=== PATIENT | male | born 1950 | race Caucasian/White ===

== ENCOUNTER → 2017-02-23 | Outpatient (CLI) | payer BC ==
[~2017-02-23] MED LIST: ALEN70TA2 PO; ASP325T; ASP81CT PO; CALC-80 PO; CHOL200025 PO; FLAX100031 PO; MTP25TSR PO; OMG1KC; PNT40TEC PO; SMV10T PO; SRTR100T PO; [UNRECOGNIZED DRUG - OTHER]
--- NOTE | 2017-02-23 14:11 | Diagnostic Imaging Report ---
EXAMINATION: DEXA scan. INDICATION: Osteopenia. TECHNIQUE: Bone mineral density estimated based on dual energy radiography over the lumbar spine and femoral necks, was performed. FINDINGS: The lumbar spine T-score is -1.2. This is 8.7% increased density measurement compared to 02/23/2017. T score in the left femoral neck is -2 and on the right side is -1.8. This is 0.7% decreased density measurement compared to the previous exam. IMPRESSION: Osteopenia. Dictated by: Dictated on workstation # [id number]
== END ==
LOC: RAD 07:49
PROVIDERS: ATTEND Family Medicine
DX: M81.0 Age-related osteoporosis without current pathological fracture (principal)
CPT/HCPCS: 77080

== ENCOUNTER → 2017-04-06 | Outpatient (CLI) | payer BC ==
--- NOTE | 2017-04-06 13:03 | Diagnostic Imaging Report ---
PROCEDURE: Lung cancer screening CT chest without contrast. TECHNIQUE: Multiple contiguous axial images were obtained through the chest without the use of intravenous contrast. This is performed with a low-dose protocol. INDICATION: Currently asymptomatic patient with 30 pack years history of smoking COMPARISON: 08/12/2014. FINDINGS: There is a 6-mm calcified granuloma in the medial aspect of the left lower lobe posterior to the descending aorta with other smaller adjacent nodules seen. It is stable from 2015 exam. There is no new pulmonary nodule, mass, or significant consolidation. There is no mediastinal mass. The hilar vessels are not opacified with no obvious hilar mass seen. No axillary lymphadenopathy is noted. The heart size is normal. The thoracic aorta is normal. No pleural or pericardial effusion. The liver demonstrates hypodense lesions up to 1.8 cm in size likely related to hepatic cysts. These appeared to be present on 2015 exam but slightly more prominent currently. The osseous structures demonstrate mild degenerative changes. There is an 8-mm nonspecific sclerotic focus seen in the posterior aspect of the spinous process of T7. This is likely related to bony island and appeared to be present on the previous exam submitted. IMPRESSION: Calcified granulomas in the medial posterior aspect of the left lower lobe. No suspicious nodule or lung mass identified. Lung Rads Category 2. Benign findings. Recommendations: Annual screening low-dose CT scan. Dictated by: Dictated on workstation # [id number]
== END ==
LOC: RAD 10:07
PROVIDERS: ATTEND Family Medicine
DX: Z12.2 Encounter for screening for malignant neoplasm of respiratory organs (principal); J98.4 Other disorders of lung; Z87.891 Personal history of nicotine dependence

== ENCOUNTER → 2018-04-05 | Outpatient (CLI) | payer BC ==
--- NOTE | 2018-04-05 15:11 | Diagnostic Imaging Report ---
INDICATION: Osteopenia; screening for osteoporosis. COMPARISON: 02/23/2017 FINDINGS: AP Spine L1-L4: [BMD (g/cm2): 1.0] [T-Score: -2.0] [Z-Score: -0.6] [BMD Previous: .088] [BMD % Change: -8.8] LT Hip Neck: [BMD (g/cm2): .699] [T-Score: -2.9] [Z-Score: -1.0] LT Hip Total: [BMD (g/cm2):.805] [T-Score:-2.1] [Z-Score: .8] [BMD Previous: ] [BMD % Change: -1.4] RT Hip Neck: [BMD (g/cm2):.795] [T-Score:-2.1] [Z-Score:-0.3] RT Hip Total: [BMD (g/cm2):.829] [T-score:-1.9] [Z-Score:-0.6] [BMD Previous: ] [BMD % Change:-1.4] *Indicates significant change from prior examination based on 95% confidence level. World Health Organization criteria for BMD interpretation classify patients as Normal (T-score at or above -1.0), Osteopenic (T-score between -1.0 and -2.5) or Osteoporotic (T-score at or below -2.5). LIMITATIONS AND MODIFICATION: None. FRACTURE RISK (FRAX SCORE): The ten year probability of (%): Major Osteoporotic Fracture: [6.6] Hip Fracture: [1.9] IMPRESSION: 1. Osteopenia (Low bone mass). 2. No significant change in bone mineral density since prior examination. 3. See below National Osteoporosis Foundation guidelines on when to potentially initiate pharmacologic therapy. Based on the National Osteoporosis Foundation Guidelines, pharmacologic treatment should be initiated in any of the following, unless clinical conditions suggest otherwise: * Any patient with prior fragility fracture of the hip or vertebrae. A spine fracture indicates 5X risk for subsequent spine fracture and 2X risk for subsequent hip fracture. * Osteoporosis (T-score <-2.5). * Postmenopausal women and men age 50 and older with low bone mass/osteopenia (T-score between -1.0 and -2.5) by DXA and 10-year major osteoporotic fracture greater than 20% or a 10-year probability of hip fracture greater than 3%. These fracture risks are supplied above in the FRAX score, if applicable. * Clinician judgement and/or patient preferences may indicate treatment for people with 10-year fracture probabilities above or below these levels. Dictated by: Dictated on workstation # [id number]
== END ==
LOC: RAD 08:10
PROVIDERS: ATTEND Nurse Practitioner Family
DX: Z13.820 Encounter for screening for osteoporosis (principal); M85.89 Other specified disorders of bone density and structure, multiple sites; M81.0 Age-related osteoporosis without current pathological fracture
CPT/HCPCS: 77080

== ENCOUNTER → 2018-04-09 | Outpatient (CLI) | payer BC ==
--- NOTE | 2018-04-09 09:06 | Diagnostic Imaging Report ---
Indication: 13-xdgi-[id number] smoker for low-dose CT screening. Exam compared with prior 04/06/2017. Findings: Long-term stability of calcified benign nodule consistent with granuloma in the left lower lobe unchanged. No new, noncalcified or suspicious chest mass. There is no pneumonia, effusion or pneumothorax. No appreciable thoracic adenopathy or aneurysm. There is mild left-sided coronary arterial atherosclerotic calcifications. A low-density nodule left hepatic lobe stable believed cystic and unchanged. Right lobe nodules present on prior below the [id number] of today's exam. Thoracic spondylosis chronic. No acute or suspect bony abnormality. Impression: Stable benign findings as described. LungRads category 2. Continued low-dose annual CT screening followup recommended in 12 months' time. Dictated by: Dictated on workstation # [id number]
== END ==
LOC: RAD 08:12
PROVIDERS: ATTEND Nurse Practitioner Family
DX: Z12.2 Encounter for screening for malignant neoplasm of respiratory organs (principal); Z87.891 Personal history of nicotine dependence

== ENCOUNTER → 2019-03-13 | Outpatient (CLI) | payer BC, MEDICARE ==
--- NOTE | 2019-03-13 20:58 | Diagnostic Imaging Report ---
EXAMINATION: Magnetic resonance imaging of the right shoulder without contrast. DATE: March 13, 2019. COMPARISON: None. HISTORY: 69-year-old male, right shoulder pain. TECHNIQUE: Magnetic Resonance Imaging sequences were performed of the shoulder without contrast. FINDINGS: ROTATOR CUFF, LIGAMENTS, TENDONS, AND MUSCLES: The supraspinatus, infraspinatus, teres minor, and subscapularis tendons and muscles are intact. There is normal rotator cuff muscle bulk and signal. LONG HEAD OF BICEPS: The biceps labral attachment and long head of the biceps tendon is intact. The long head of the biceps tendon is normally positioned within the bicipital groove. GLENOHUMERAL JOINT: The humeral head is well positioned relative to the glenoid. The labrum is grossly intact. There is no identified paralabral cyst. The articular cartilage is grossly intact. There is no joint effusion. ACROMIOCLAVICULAR JOINT: The acromioclavicular joint is normally aligned. The coracoclavicular and coracoacromial ligaments are intact. There are advanced acromioclavicular degenerative changes with osteophytes extending approximately 3 mm below the joint margin. BONE: There is no os acromiale. There is prominent degenerative related marrow edema adjacent to the acromioclavicular joint. There is no acute fracture, bone contusion or evidence of osteonecrosis. BURSAE AND SOFT TISSUES: There is soft tissue edema adjacent to the acromioclavicular joint. Additional bursal and soft tissue assessment is unremarkable. IMPRESSION: 1. Intact rotator cuff. 2. Severe acromioclavicular degenerative changes of 3 mm undersurface osteophytes. Extensive degenerative related marrow edema adjacent to the acromioclavicular joint. 3. Grossly intact labrum. Additional glenohumeral joint assessment is unremarkable. 4. No acute fracture, bone contusion or evidence of osteonecrosis. Dictated by: Dictated on workstation # [id number]
== END ==
LOC: RAD 12:26
PROVIDERS: ATTEND Family Medicine
DX: M19.011 Primary osteoarthritis, right shoulder (principal); M25.711 Osteophyte, right shoulder
CPT/HCPCS: 73221

== ENCOUNTER 2021-03-03 05:28 | Outpatient (RCR) | payer BC, MEDICARE ==
[~2021-03-03] VITALS: Ht 160 cm; Wt 50.8 kg
[~2021-03-03 05:28] MED LIST changes: +LOSA50TA63 PO
== END 2021-03-03 09:23 | disposition home or self-care (01) ==
LOC: PREOP 05:28
PROVIDERS: ATTEND Internal Medicine
DX: Z01.812 Encounter for preprocedural laboratory examination (principal); R13.10 Dysphagia, unspecified; Z80.0 Family history of malignant neoplasm of digestive organs; Z20.822 Contact with and (suspected) exposure to COVID-19
CPT/HCPCS: 87635

== ENCOUNTER 2021-03-05 09:58 | Day surgery (SDC) | payer BC, MEDICARE ==
--- NOTE | 2021-03-03 06:20 | HISTORY AND PHYSICAL ---
DATE OF SERVICE: [facility] HISTORY OF PRESENT ILLNESS: The patient is a 70-year-old male referred by Dr. Cardoso for surveillance EGD and colonoscopy. I last performed panendoscopy on 5 years ago that did not reveal significant abnormality. He does have a brother who was diagnosed with gastric cancer in his 40s. They both underwent genetic testing and showed similar pattern increasing the risk for colon and gastric cancer as well as prostate. The patient has a personal history of prostate and reportedly bladder cancer that did not require cystectomy. He has had radiation therapy for prostate cancer. He reports no changes in health while his weight is down a little over 10 pounds. He reports that he has been through diet and exercise. He has had some intermittent epigastric discomfort, denies dysphagia. He has noted no melena or bright red blood per rectum. PAST MEDICAL HISTORY: Other than above, past medical history is significant for hypertension, osteoporosis and depression. MEDICATIONS: Include Toprol-XL 25 mg daily, Zoloft 100 mg daily, alendronate 70 mg weekly, simvastatin 20 mg daily, hydrochlorothiazide 25 mg daily. FAMILY HISTORY: Other than his brother, he had one uncle, who also of stomach cancer. Father at age of 67. He is unsure of the cause. Mother reportedly of natural cause at the age of 86. SOCIAL HISTORY: He is retired, several years ago with no past smoking history and no significant alcohol intake. REVIEW OF SYSTEMS: CONSTITUTIONAL: He denies any recent change in weight. His weight is down 12.8 pounds from his last office visit five years ago. Denies night sweats, chills, fever and is vaccinated fully for COVID. GASTROINTESTINAL: As noted in the HPI. PULMONARY: Denies cough, wheezing or shortness of breath. CARDIOVASCULAR: Denies chest pain, orthopnea, PND or pedal edema. PHYSICAL EXAMINATION: GENERAL: Reveals pleasant white male, appears to be in no acute distress. HEENT: Unremarkable. CHEST: Clear. CARDIOVASCULAR: Reveals regular rate and rhythm without significant murmur, S3 or S4. NECK: Revealed no JVD, adenopathy or bruits. ABDOMEN: Soft, supple without mass, organomegaly or tenderness. VITAL SIGNS: Blood pressure was 142/80, heart rate of 70 and regular. EXTREMITIES: Reveal no cyanosis, clubbing or edema. ASSESSMENT: The patient is being set up for surveillance panendoscopy due to strong family history for colon cancer and reported genetic testing that increases his risk for this as well as colon cancer. Prep instructions with the Suprep kit were given and questions were answered. Job ID: [id number] DocumentID: [id number] Dictated Date: 03/01/2021 10:56:28 Domain Architect Date: 03/01/2021 11:11:17 Dictated By: LUISA KELLY MD MTDD
[2021-03-05] VITALS (9 sets, daily range): BP systolic 117–144; BP diastolic 57–79
[~2021-03-05] VITALS: Ht 160 cm; Wt 50.8 kg
[2021-03-05] MEDS ORDERED: LACTATED RINGERS 1,000 ML IV STA (10:10)
[2021-03-05] MEDS ORDERED: LACTATED RINGERS 1,000 ML IV ONE (10:13)
[2021-03-05] MEDS ORDERED: HURRICAINE EXT TUBE (BENZOCAINE) XX PRN (10:15)
[2021-03-05] MEDS ORDERED: LIDOCAINE JELLY 2% 6 ML SYRINGE MM PRN (10:15)
--- NOTE | 2021-03-05 11:12 | Pre-Op Note & Conscious Sedat ---
Pre-Operative Progress Note H&P Reviewed The H&P was reviewed, patient examined and no changes noted. Date H&P Reviewed: Mar 05, 2021 Time H&P Reviewed: 10:40 Conscious Sedation Pre-Proced ASA Score 2 For ASA 3 and 4: Consider anesthesia and medical clearance. Also, for patients with a history of failed moderate sedation consider anesthesia. Airway Lungs Heart ASA score ASA 1: a normal healthy patient ASA 2: a patient with a mild systemic disease (mid diabetes, controlled hypertension, obesity ASA 3: a patient with a severe systemic disease that limits activity (angina, COPD, prior Myocardial infarction) ASA 4: a patient with an incapacitating disease that is a constant threat to life (CHF, renal failure) ASA 5: a moribund patient not expected to survive 24 hrs. (ruptured aneurysm) ASA 6: a declared brain- patient whose organs are being harvested. For emergent operations, add the letter E after the classification Mallampati Classification Grade 2 Sedation Plan Analgesia, Amnesia, Plan communicated to team members, Discussed options with patient/fam, Discussed risks with patient/fam The patient is an appropriate candidate to undergo the planned procedure, sedation, and anesthesia. The patient immediately re-assessed prior to indication. LUISA KELLY MD Mar 05, 2021 11:12
[2021-03-05] MEDS ORDERED: PROPOFOL INJECTION 50 ML IV ONE (11:13)
--- NOTE | 2021-03-05 13:35 | Anesthesia-General Post-Op ---
MAC Patient Condition Mental Status/LOC: Same as Preop Cardiovascular: Satisfactory Nausea/Vomiting: Absent Respiratory: Satisfactory Pain: Controlled Complications: Absent Post Op Complications Complications None Follow Up Care/Instructions Patient Instructions None needed. Anesthesiology Discharge Order Discharge Order Patient is doing well, no complaints, stable vital signs, no apparent adverse anesthesia problems. No complications reported per nursing. ALIREZA JO CRNA Mar 05, 2021 13:35
--- NOTE | 2021-03-05 19:21 | OPERATIVE REPORT ---
DATE OF SERVICE: PANENDOSCOPY SUMMARY INDICATION FOR PROCEDURE: The patient is a 71-year-old white male referred by Dr. Cardoso for panendoscopy. There is a strong family history for gastric cancer. He reports some epigastric pain and undergoing colonoscopy due to history of polyps. DESCRIPTION OF PROCEDURE: The patient was placed in the left lateral decubitus position. The endoscope was inserted in the oral cavity and under direct visualization, the esophagus was intubated. The scope was passed down the esophagus through the stomach and second portion of the duodenum. Careful inspection was made as the endoscope was withdrawn. FINDINGS: The posterior pharynx, epiglottis, arytenoid aperture, true and false vocal folds were unremarkable on visual inspection. Proximal, mid and distal esophagus were unremarkable. The Z line was distinct. There was no evidence for hiatal hernia. No overt evidence for erosive esophagitis and no Youssef's change. The cardia and fundus of the stomach were unremarkable. There was some mild antral erythema with no underlying evidence for malignancy. A biopsy was obtained and submitted for histopathology and Helicobacter evaluation. The pylorus, pyloric channel, duodenal bulb and second portion of the duodenum were unremarkable. ASSESSMENT: Mild antral erythema noted with an otherwise normal EGD with no evidence for underlying gastric cancer. Biopsy from the antrum is pending for Helicobacter and histopathology. We then proceeded with colonoscopy. COLONOSCOPY: Prior to undergoing colonoscopy, a digital rectal evaluation was performed. Anal sphincter tone was normal and perianal reflexes intact. There was no palpable prostate tissue noted. No other abnormalities were noted on digital inspection of the anal canal and distal rectal vault. Present in the distal rectum were few telangiectasias compatible with some post-radiation change, but no ulceration and no evidence for polyps. The sigmoid colon, descending colon, splenic flexure, transverse colon, hepatic flexure, ascending colon and cecum were unremarkable with no evidence for neoplasia. ASSESSMENT: Findings are compatible with radiation proctitis change without ulceration. No evidence for neoplasia or diverticular disease. Otherwise, normal colonoscopy to the cecum. Considering family history, I would advocate repeating panendoscopy in 5 years. I thank you for the referral of this pleasant gentleman, reassured by today's findings. Job ID: [id number] DocumentID: [id number] Dictated Date: 03/05/2021 13:21:44 [employer]order [employer] Date: 03/05/2021 19:19:27 Dictated By: LUISA KELLY MD
== END 2021-03-05 13:10 | disposition home or self-care (01) ==
LOC: ENDO 09:58
PROVIDERS: ATTEND Internal Medicine
DX: Z12.11 Encounter for screening for malignant neoplasm of colon (principal); R10.13 Epigastric pain; K31.89 Other diseases of stomach and duodenum; I10 Essential (primary) hypertension; E78.5 Hyperlipidemia, unspecified; F32.A Depression, unspecified; Z85.46 Personal history of malignant neoplasm of prostate; Z79.899 Other long term (current) drug therapy; Z85.51 Personal history of malignant neoplasm of bladder; Z80.0 Family history of malignant neoplasm of digestive organs
CPT/HCPCS: 43239; G0105

== ENCOUNTER 2021-04-16 13:28 | Outpatient (CLI) | payer BC, MEDICARE ==
[2021-04-16 13:32] VITALS: BP 113/53
[2021-04-16] MEDS ORDERED: DENOSUMAB 60 MG/1 ML (PROLIA) SQ ONE (13:45)
== END 2021-04-16 14:30 | disposition home or self-care (01) ==
LOC: SDC 13:28
PROVIDERS: ATTEND Nurse Practitioner Family
DX: M81.0 Age-related osteoporosis without current pathological fracture (principal)
CPT/HCPCS: 96372

== ENCOUNTER → 2021-10-19 | Outpatient (CLI) | payer BC, MEDICARE ==
[~2021-10-19] MED LIST changes: +DENOSUMAB 60 MG/1 ML (PROLIA) SQ ONE
[2021-10-19 15:30] VITALS: BP 112/56
== END ==
LOC: SDC 15:17
PROVIDERS: ATTEND Nurse Practitioner Family
DX: M81.0 Age-related osteoporosis without current pathological fracture (principal)
CPT/HCPCS: 96372

== ENCOUNTER → 2022-02-11 | Outpatient (CLI) | payer BC, MEDICARE ==
[~2022-02-11] MED LIST changes: -ALEN70TA2 PO; +ALEN70TA85 PO; -DENOSUMAB 60 MG/1 ML (PROLIA) SQ ONE
== END ==
LOC: CARD 14:00
PROVIDERS: ATTEND Family Medicine
DX: R00.1 Bradycardia, unspecified (principal)
CPT/HCPCS: 93246

== ENCOUNTER → 2022-04-12 | Outpatient (CLI) | payer BC, MEDICARE ==
[~2022-04-12] VITALS: Ht 160 cm; Wt 50.8 kg
[~2022-04-12] MED LIST changes: +DENOSUMAB 60 MG/1 ML (PROLIA) SQ ONE
[2022-04-12 13:05] VITALS: BP 137/75
== END ==
LOC: SDC 12:41
PROVIDERS: ATTEND Nurse Practitioner Family
DX: M81.0 Age-related osteoporosis without current pathological fracture (principal)
CPT/HCPCS: 96372

== ENCOUNTER 2022-08-01 22:38 | Inpatient (IN) | payer BC, MEDICARE ==
[~2022-08-01] VITALS: Ht 160.2 cm; Wt 52.1 kg
[~2022-08-01 22:38] MED LIST changes: -DENOSUMAB 60 MG/1 ML (PROLIA) SQ ONE
[2022-08-01] MEDS ORDERED: KETOROLAC 30 MG/ML VIAL IVP STA (23:19)
[2022-08-01] MEDS ORDERED: LACTATED RINGERS 1,000 ML IV STA (23:19)
[2022-08-01 23:24] LABS: BASOPHILS % (AUTO) 0 % (0-10); EOSINOPHILS % (AUTO) 0 % (0-10); HEMATOCRIT 37 % (40-54); HEMOGLOBIN 13.7 g/dL (13.3-17.7); LYMPHOCYTES % (AUTO) 8 % (12-44); MEAN CORPUSCULAR HEMOGLOBIN 34 pg (25-34); MEAN CORPUSCULAR HGB CONC 37 g/dL (32-36); MEAN CORPUSCULAR VOLUME 91 fL (80-99); MEAN PLATELET VOLUME 10.3 fL (9.0-12.2); MONOCYTES # (AUTO) 0.9 10^3/uL (0.0-1.0); MONOCYTES % (AUTO) 7 % (0-12); NEUTROPHILS # (AUTO) 10.9 10^3/uL (1.8-7.8); NEUTROPHILS % (AUTO) 85 % (42-75); PLATELET COUNT 172 10^3/uL (130-400); WHITE BLOOD COUNT 12.8 10^3/uL (4.3-11.0)
[2022-08-01 23:27] LABS: POTASSIUM 4.4 MMOL/L (3.6-5.0)
[2022-08-01 23:28] LABS: CALCIUM 8.8 MG/DL (8.5-10.1)
[2022-08-01 23:28] LABS: BILIRUBIN,URINE NEGATIVE (NEGATIVE); CLARITY,URINE CLEAR; COLOR,URINE YELLOW; GLUCOSE, URINE (UA) NEGATIVE (NEGATIVE); KETONES,URINE NEGATIVE (NEGATIVE); LEUKOCYTE ESTERASE ,URINE NEGATIVE (NEGATIVE); NITRITE,URINE NEGATIVE (NEGATIVE); PROTEIN,URINE NEGATIVE (NEGATIVE)
[2022-08-01 23:29] LABS: TOTAL PROTEIN 6.8 GM/DL (6.4-8.2)
[2022-08-01] MEDS ORDERED: ONDANSETRON 4 MG/2 ML (SDV) Z0FRAN IVP ONE (23:30)
[2022-08-01 23:31] LABS: BILIRUBIN,TOTAL 0.8 MG/DL (0.1-1.0)
[2022-08-01 23:33] LABS: CREATININE SERUM 0.91 MG/DL (0.60-1.30)
[2022-08-01 23:36] LABS: MAGNESIUM 2.1 MG/DL (1.6-2.4)
[2022-08-01 23:40] LABS: BACTERIA,URINE NEGATIVE /HPF
[2022-08-02] VITALS (13 sets, daily range): BP systolic 104–165; BP diastolic 55–83
[2022-08-02] MEDS ORDERED: IOHEXOL 350 MG/ML 100 ML (OMNIPAQUE 350) VIAL IV ONE
[2022-08-02] MEDS ORDERED: CATHETER FLUSH 10 ML SYR IV PRN
[2022-08-02] MEDS ORDERED: NS 100 ML (IVPB) BAG IV ONE
[2022-08-02 00:07] LABS: ERYTHROCYTE SEDIMENTATION RATE 13 MM/HR (0-30); LYMPHOCYTES % (MANUAL) 5 %; MONOCYTES % (MANUAL) 9 %; NEUTROPHILS % (MANUAL) 86 %; RBC MORPH NORMAL
[2022-08-02] MEDS ORDERED: CEFEPIME INJECTION 1,000 MG in NS (IVPB) 50 ML IV ONE (00:30)
--- NOTE | 2022-08-02 01:30 | ED Abdominal Pain ---
General Chief Complaint: Abdominal/GI Problems Stated Complaint: APPENDICITIS Nursing Triage Note: PT AMB TO RM 8 WITH CC OF R LOWER ABD PAIN AND N/V X 2 DAYS. PT STATES PAIN INCREASED THIS PM CAUSING HIM TO BE CONCERNED FOR A APPENDICITIS. PT STATES HE HAS NOT EATIN SINCE MONDAY AM. Source of Information: Patient History of Present Illness Date Seen by Provider: Aug 01, 2022 Time Seen by Provider: 22:15 Initial Comments PT ARRIVES VIA POV FROM HOME PT STATES HE BEGAN HAVING ABDOMINAL PAIN ON MONDAY NIGHT 07/30/22 STATES PAIN STARTED IN PERIUMBILICAL AREA, AND THEN IT MOVED TO HIS RIGHT LOWER ABDOMEN PAIN IS CONSTANT, AND IS MUCH WORSE WITH ANY MOVEMENT OR WALKING. PAIN IS A LITTLE LESS IF HE LAYS STILL HE HAD FEVER OF 101 ON MONDAY HE HAS HAD NAUSEA AND VOMITED X 1 ON MONDAY MORNING. HE IS STILL URINATING NORMALLY. HE HAS SLIGHT PAIN IN HIS ABDOMEN ON URINATING. HE HAS NOT HAD BM SINCE MONDAY HE DID NOT EAT ANY FOOD ON MONDAY. TODAY HE ATE A LITTLE PASTA WITH [employer] ABOUT 3 HOURS AGO. HE HAS BEEN DRINKING FLUIDS HE HAS HAD PROSTATE CANCER AND HAD HIS PROSTATE REMOVED IN 2009 IN [place]. HE RECEIVED RADIATION WELL. NO CHEMOTHERAPY HE HAS NOT HAD ANY OTHER SURGERIES HE HAS HISTORY OF HTN AND HYPERLIPIDEMIA. PCP: DR. COWART. Allergies and Home Medications Allergies Coded Allergies: Penicillins (Verified Allergy, Unknown, 10/30/07) Patient Home Medication List Home Medication List Reviewed: Yes Aspirin (Aspirin 81 Mg Chew Tab) 81 Mg Chew, 81 MG PO DAILY, (Reported) Entered as Reported by: LI ROBLEDO on 04/05/111509 Last Action: Reviewed Calcium Carbonate/Vitamin D3 (Calcium 600 + D Caplet) 1 Each Tablet, 2 EACH PO DAILY, (Reported) Entered as Reported by: LI ROBLEDO on 04/05/111511 Last Action: Reviewed Cholecalciferol (Vitamin D3) (Vitamin D3) 2,000 Unit Tablet, 2,000 UNIT PO DAILY, (Reported) Entered as Reported by: LI ROBLEDO on 04/05/111511 Last Action: Reviewed Losartan Potassium (Losartan Potassium) 50 Mg Tablet, 50 MG PO BID, (Reported) Entered as Reported by: ANAHI LEY on 03/02/21 3430 Last Action: Reviewed Sertraline Hcl (Zoloft) 100 Mg Tablet, 50 MG PO DAILY, (Reported) Entered as Reported by: RUDY MANN on 10/30/07 1134 Last Action: Reviewed Simvastatin (Zocor) 10 Mg Tab, 10 MG PO EVERY OTHER DAY, (Reported) Entered as Reported by: LI ROBLEDO on 04/05/11 1510 Last Action: Reviewed Discontinued Medications Alendronate Sodium (Fosamax) 70 Mg Tablet, 70 MG PO WEEK, (Reported) Discontinued Reason: Duplicate Order Entered as Reported by: JOSE CARLOS PATTON on 02/17/16 1240 Last Action: Discontinued Metoprolol Succinate (Toprol Xl 25MG) 25 Mg Tab.sr.24h, 12.5 MG PO DAILY, (Reported) Discontinued Reason: No Longer Taking Entered as Reported by: RUDY MANN on 10/30/07 113 Last Action: Discontinued Review of Systems Review of Systems Constitutional: see HPI, fever, malaise EENTM: No Symptoms Reported Respiratory: No Symptoms Reported Cardiovascular: No Symptoms Reported Gastrointestinal: See HPI, Abdominal Pain, Nausea, Poor Appetite, Vomiting Genitourinary: See HPI Musculoskeletal: no symptoms reported Skin: no symptoms reported Psychiatric/Neurological: No Symptoms Reported Endocrine: No Symptoms Reported Hematologic/Lymphatic: No Symptoms Reported Past Iydrehe-Lxdcdn-Nqkbge Hx Patient Social History Tobacco Use?: No Substance use?: No Alcohol Use?: No Pt feels they are or have been: No Immunizations Up To Date Tetanus Booster (TDap): Unknown PED Vaccines UTD: No Influenza Vaccine Up-to-Date: Yes; Up-to-Date First/Initial COVID19 Vaccinat: JUN 2020 Second COVID19 Vaccination King: JULY 2020 Third COVID19 Vaccination Date: JUN 2020 Seasonal Allergies Seasonal Allergies: No Past Medical History Surgery/Hospitalization HX: HTN Surgeries: Yes Cardiac, Eye Surgery, Prostatectomy Respiratory: No Cardiac: Yes High Cholesterol, Hypertension Neurological: No Reproductive Disorders: No Sexually Transmitted Disease: No Genitourinary: Yes (PROSTATE CANCER 2009) Prostate Problems Gastrointestinal: No Musculoskeletal: No Endocrine: No Cancer: Yes Prostate Psychosocial: No Integumentary: No Blood Disorders: No Family Medical History FH: gastric cancer PAST SURGICAL HISTORY: -PROSTATECTOMY 2010 IN [place] FOR CANCER -10/30/2007--CARDIAC CATH BY DR. ROSA: MILD TO MODERATE NON-OCCLUSIVE DISEASE, NO INTERVENTION. -MULTIPLE COLONOSCOPIES -03/05/2021--COLONOSCOPY BY DR. 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 No evidence for neoplasia or diverticular disease. Otherwise, normal colonoscopy to the cecum. Considering family history, I would advocate repeating panendoscopy in 5 years. Physical Exam Vital Signs Vital Signs - First Documented 08/01/22 22:51 Temp 36.8 Pulse 67 Resp 16 B/P (MAP) 132/70 (90) Pulse Ox 98 O2 Delivery Room Air Capillary Refill : Less Than 3 Seconds Height/Weight/BMI Height: 5'3.00" Weight: 122lbs. 0.0oz. 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, no motor/sensory deficits, alert, normal mood/affect, oriented x 3 Skin: normal color, warm/dry; No rash Progress/Results/Core Measures Results/Orders Lab Results Laboratory Tests Test 08/01/22 23:03 08/01/22 23:13 Range/Units White Blood Count 12.8 H 4.3-11.0 10^3/uL Red Blood Count 4.09 L 4.30-5.52 10^6/uL Hemoglobin 13.7 13.3-17.7 g/dL Hematocrit 37 L 40-54 % Mean Corpuscular Volume 91 80-99 fL Mean Corpuscular Hemoglobin 34 25-34 pg Mean Corpuscular Hemoglobin Concent 37 H 32-36 g/dL Red Cell Distribution Width 11.8 10.0-14.5 % Platelet Count 172 130-400 10^3/uL Mean Platelet Volume 10.3 9.0-12.2 fL Immature Granulocyte % (Auto) 0 % Neutrophils (%) (Auto) 85 H 42-75 % Lymphocytes (%) (Auto) 8 L 12-44 % Monocytes (%) (Auto) 7 0-12 % Eosinophils (%) (Auto) 0 0-10 % Basophils (%) (Auto) 0 0-10 % Neutrophils # (Auto) 10.9 H 1.8-7.8 10^3/uL Lymphocytes # (Auto) 1.0 1.0-4.0 10^3/uL Monocytes # (Auto) 0.9 0.0-1.0 10^3/uL Eosinophils # (Auto) 0.0 0.0-0.3 10^3/uL Basophils # (Auto) 0.0 0.0-0.1 10^3/uL Immature Granulocyte # (Auto) 0.1 0.0-0.1 10^3/uL Neutrophils % (Manual) 86 % Lymphocytes % (Manual) 5 % Monocytes % (Manual) 9 % Blood Morphology Comment NORMAL Erythrocyte Sedimentation Rate 13 0-30 MM/HR Sodium Level 126 L 135-145 MMOL/L Potassium Level 4.4 3.6-5.0 MMOL/L Chloride Level 93 L 98-107 MMOL/L Carbon Dioxide Level 23 21-32 MMOL/L Anion Gap 10 5-14 MMOL/L Blood Urea Nitrogen 16 7-18 MG/DL Creatinine 0.91 0.60-1.30 MG/DL Estimat Glomerular Filtration Rate 88 BUN/Creatinine Ratio 18 Glucose Level 139 H 70-105 MG/DL Calcium Level 8.8 8.5-10.1 MG/DL Corrected Calcium 8.8 8.5-10.1 MG/DL Magnesium Level 2.1 1.6-2.4 MG/DL Total Bilirubin 0.8 0.1-1.0 MG/DL Aspartate Amino Transf (AST/SGOT) 28 5-34 U/L Alanine Aminotransferase (ALT/SGPT) 17 0-55 U/L Alkaline Phosphatase 38 L 40-136 U/L C-Reactive Protein High Sensitivity 10.52 H 0.00-0.50 MG/DL Total Protein 6.8 6.4-8.2 GM/DL Albumin 4.0 3.2-4.5 GM/DL Amylase Level 63 25-125 U/L Lipase 65 8-78 U/L Urine Color YELLOW Urine Clarity CLEAR Urine pH 7.0 5-9 Urine Specific [place] <=1.005 1.016-1.022 Urine Protein NEGATIVE NEGATIVE Urine Glucose (UA) NEGATIVE NEGATIVE Urine Ketones NEGATIVE NEGATIVE Urine Nitrite NEGATIVE NEGATIVE Urine Bilirubin NEGATIVE NEGATIVE Urine Urobilinogen 0.2 < = 1.0 MG/DL Urine Leukocyte Esterase NEGATIVE NEGATIVE Urine RBC (Auto) NEGATIVE NEGATIVE Urine RBC NONE /HPF Urine WBC NONE /HPF Urine Crystals NONE /LPF Urine Bacteria NEGATIVE /HPF Urine Casts NONE /LPF Urine Mucus NEGATIVE /LPF Urine Culture Indicated NO My Orders Orders - OZZY BATRES DO Ed Iv/Invasive Line Start (08/01/22 23:16) Ekg Tracing (08/01/22 23:16) Monitor-Rhythm Ecg Trace Only (08/01/22 23:16) Amylase (08/01/22 23:16) Cbc With Automated Diff (08/01/22 23:16) Comprehensive Metabolic Panel (08/01/22 23:16) Hs C Reactive Protein (08/01/22 23:16) Lipase (08/01/22 23:16) Magnesium (08/01/22 23:16) Ua Culture If Indicated (08/01/22 23:16) Erythrocyte Sedimentation Rate (08/01/22 23:16) Ondansetron Injection (Zofran Injectio (08/01/22 23:30) Lactated Ringers (Lr 1000 Ml Iv Solution (08/01/22 23:19) Ketorolac Injection (Toradol Injection) (08/01/22 23:19) Ed Iv/Invasive Line Start (08/01/22 23:19) Manual Differential (08/01/22 23:03) Ct Abd/Pelv W (Appendicitis) (08/01/22 23:46) Iohexol Injection (Omnipaque 350 Mg/Ml 1 (08/02/22 00:00) Sodium Chloride Flush (Catheter Flush Sy (08/02/22 00:00) Ns (Ivpb) (Sodium Chloride 0.9% Ivpb Bag (08/02/22 00:00) Cefepime Injection (Maxipime Injection) (08/02/22 00:30) Medications Given in ED Current Medications Medications Dose Ordered Sig/Luz Route Start Time Stop Time Status Last Admin Dose Admin Cefepime HCl 1000 mg/Sodium Chloride 50 ml @ 100 mls/hr ONCE ONCE IV 08/02/22 00:30 08/02/22 00:59 DC 08/02/22 00:37 100 MLS/HR Iohexol 100 ml ONCE ONCE IV 08/02/22 00:00 08/02/22 00:01 DC 08/01/22 23:54 60 ML Ondansetron HCl 4 mg ONCE ONCE IVP 08/01/22 23:30 08/01/22 23:31 DC 08/01/22 23:27 4 MG Sodium Chloride 10 ml NEEDED PRN IV 08/02/22 00:00 08/02/22 02:47 DC 08/01/22 23:54 10 ML Sodium Chloride 100 ml ONCE ONCE IV 08/02/22 00:00 08/02/22 00:01 DC 08/01/22 23:54 80 ML Vital Signs/I&O 08/01/22 08/02/22 22:51 01:06 Temp 36.8 Pulse 67 65 Resp 16 16 B/P (MAP) 132/70 (90) 112/67 Pulse Ox 98 98 O2 Delivery Room Air Room Air Blood Pressure Mean: 90 Progress Progress Note : Progress Note GIVEN: -IV FLUIDS -TORADOL -ZOFRAN -ANTIBIOTICS PAIN AND NAUSEA IS IMPROVED WITH THE ABOVE MEDICATIONS UNEVENTFUL ER STAY NO DETERIORATION IN PT'S CONDITION DURING ER STAY VITALS STABLE, AFEBRILE. DISCUSSED TEST RESULTS AND NEED FOR ADMIT AND SURGERY AND PT AGREES TO PLAN OF CARE. DID SPEAK WITH PT'S DAUGHTER ( WHO IS A TURNING MACHINE SET UP OPERATOR) ON THE PHONE, AND UPDATED HER ON PT'S CONDITION, DX AND PLANS FOR ADMIT AND ANTICIPATE SURGERY IN THE MORNING. REVIEWED PRIOR RECORDS--ESSENTIALLY ALL ARE OUTPATIENT PROCEDURES, NO ER VISITS OR INPATIENT STAYS. Diagnostic Imaging Comments CT ABDOMEN/PELVIS--PER [facility] RADIOLOGIST VIA PHONE AND FAX AT 0015 -UNCOMPLICATED APPENDICITIS Reviewed: Reviewed by Me, Discussed w/Radiologist, Reviewed/Discussed Departure Communication (Admissions) 0017--SPOKE WITH DR. GILLESPIE, SURGEON, ACCEPTS PT FOR ADMIT. ORDERS NOTED Impression Primary Impression: Appendicitis Additional Impression: Hyponatremia Disposition: ADMITTED INPATIENT Condition: Improved Admissions Decision to Admit Reason: Admit from ER (General) Decision to Admit/Date: Aug 02, 2022 Time/Decision to Admit Time: 00:15 Departure-Patient Inst. Referrals: JUSTIN COWART MD (PCP) Primary Care Physician OZZY BATRES DO Aug 02, 2022 01:30
[2022-08-02] MEDS ORDERED: ONDANSETRON 4 MG/2 ML (SDV) Z0FRAN IV PRN (03:00)
[2022-08-02] MEDS ORDERED: fentaNYL INJ 100 MCG/2 ML AMP IV PRN (03:00)
[2022-08-02] MEDS: metroNIDAZOLE 500 MG/100 ML IVPB (PRE-MIX) IV SCH ×2 (03:21→15:09)
[2022-08-02] MEDS: D5 1/2 NS W/KCL 20 MEQ/L 1,000 ML IV SCH ×3 (03:21→19:22)
[2022-08-02 05:23] LABS: BASOPHILS % (AUTO) 0 % (0-10); EOSINOPHILS % (AUTO) 0 % (0-10); HEMATOCRIT 35 % (40-54); HEMOGLOBIN 12.6 g/dL (13.3-17.7); LYMPHOCYTES # (AUTO) 0.9 10^3/uL (1.0-4.0); LYMPHOCYTES % (AUTO) 11 % (12-44); MEAN CORPUSCULAR HEMOGLOBIN 33 pg (25-34); MEAN CORPUSCULAR HGB CONC 36 g/dL (32-36); MEAN CORPUSCULAR VOLUME 91 fL (80-99); MEAN PLATELET VOLUME 9.8 fL (9.0-12.2); MONOCYTES # (AUTO) 0.8 10^3/uL (0.0-1.0); MONOCYTES % (AUTO) 9 % (0-12); NEUTROPHILS # (AUTO) 7.1 10^3/uL (1.8-7.8); NEUTROPHILS % (AUTO) 80 % (42-75); PLATELET COUNT 137 10^3/uL (130-400); WHITE BLOOD COUNT 8.9 10^3/uL (4.3-11.0)
[2022-08-02 06:01] LABS: CALCIUM 8.2 MG/DL (8.5-10.1); CREATININE SERUM 0.78 MG/DL (0.60-1.30); POTASSIUM 4.3 MMOL/L (3.6-5.0)
[2022-08-02] MEDS ORDERED: CEFEPIME 1,000 MG/NS 50 ML IVPB IV SCH ×4 (06:30→14:30)
--- NOTE | 2022-08-02 07:02 | Diagnostic Imaging Report ---
EXAMINATION: CT abdomen and pelvis with intravenous contrast. TECHNIQUE: Multiple contiguous axial images were obtained through the abdomen and pelvis after the uneventful administration of intravenous contrast. All CT scans use one or more of the following dose optimizing techniques: automated exposure control, MA and/or KvP adjustment based on patient size and exam type or iterative reconstruction. HISTORY: Right lower quadrant pain. COMPARISON: None available. FINDINGS: The heart is unremarkable. Minimal dependent atelectasis is seen. Scattered hypoattenuating foci are seen in the liver, most suggestive of benign cysts. No enhancing hepatic lesions. The portal vein is patent. The gallbladder is decompressed. Simple cortical cyst is seen in the inferior pole the left kidney. No solid renal mass. No evidence of hydronephrosis. The urinary bladder is unremarkable. The spleen, pancreas, and adrenal glands have a normal appearance. There is no pathologically enlarged mesenteric or retroperitoneal adenopathy. The bowel loops are nondilated. The appendix is dilated measuring 1.8 cm in diameter. There is periappendicular fat stranding. There is no free fluid or free air. No acute osseous abnormalities. There is no free air, loculated collection, or adenopathy in the pelvis. IMPRESSION: 1. Acute appendicitis. No evidence of rupture. Agree with overnight report. Dictated by: Dictated on workstation # [id number]
--- NOTE | 2022-08-02 08:09 | Consultation - Surgery ---
VIRI ODELL 08/02/22 0809: History of Present Illness History of Present Illness Patient Consulted On(kevin/time) 08/02/22 08:05 Date Seen by Provider: Aug 02, 2022 Time Seen by Provider: 07:45 Reason for Visit: Abdominal Pain History of Present Illness 72 M w/ PMH of HTN HLD CAD and prostate cancer was admitted for 2 day hx of abdominal pain with associated anorexia and nausea and mild fever. States he has not had a BM since Monday but passing flatus . Did not eat anything Monday, continued to consume fluids. Pt describes the pain started as a dull ache over the periumbilical region and then further localized to RLQ. Pain is currently rated a 3/10 while resting and 5-6/10 with movement. Pt last ate some pasta and avocado around 8pm last night, furthering his symptoms and bringing him to the ED. States he has never felt like this before. Denies any recent changes in diet or weight. Denies any chest pain, SOB, or lightheadedness. Reports some mild discomfort with urination. Allergies and Home Medications Allergies Coded Allergies: Penicillins (Verified Allergy, Unknown, 10/30/07) Patient Home Medication List Home Medication List Reviewed: Yes Amlodipine Besylate (Amlodipine Besylate) 5 Mg Tablet, 5 MG PO HS, (Reported) Entered as Reported by: LIGIA LOPEZ on 08/02/22 103 Last Action: New Order Hydralazine HCl (Hydralazine HCl) 25 Mg Tablet, 25 MG PO BID, (Reported) Entered as Reported by: LIGIA LOPEZ on 08/02/22 103 Last Action: New Order Losartan Potassium (Losartan Potassium) 100 Mg Tablet, 100 MG PO HS, (Reported) Entered as Reported by: LIGIA LOPEZ on 08/02/22 103 Last Action: New Order Sertraline HCl (Sertraline HCl) 100 Mg Tablet, 50 MG PO DAILY, (Reported) Entered as Reported by: LIGIA LOPEZ on 08/02/22 103 Last Action: New Order Discontinued Medications Alendronate Sodium (Fosamax) 70 Mg Tablet, 70 MG PO WEEK, (Reported) Discontinued Reason: Duplicate Order Entered as Reported by: JOSE CARLOS PATTON on 02/17/16 1240 Last Action: Discontinued Aspirin (Aspirin 81 Mg Chew Tab) 81 Mg Chew, 81 MG PO DAILY, (Reported) Discontinued Reason: No Longer Taking Entered as Reported by: LI ROBLEDO on 04/05/111509 Last Action: Discontinued Calcium Carbonate/Vitamin D3 (Calcium 600 + D Caplet) 1 Each Tablet, 2 EACH PO DAILY, (Reported) Discontinued Reason: No Longer Taking Entered as Reported by: LI ROBLEDO on 04/05/111511 Last Action: Discontinued Cholecalciferol (Vitamin D3) (Vitamin D3) 2,000 Unit Tablet, 2,000 UNIT PO DAILY, (Reported) Discontinued Reason: No Longer Taking Entered as Reported by: LI ROBLEDO on 04/05/111511 Last Action: Discontinued Losartan Potassium (Losartan Potassium) 50 Mg Tablet, 50 MG PO BID, (Reported) Discontinued Reason: No Longer Taking Entered as Reported by: ANAHI LEY on 03/02/21 09 Last Action: Discontinued Metoprolol Succinate (Toprol Xl 25MG) 25 Mg Tab.sr.24h, 12.5 MG PO DAILY, (Reported) Discontinued Reason: No Longer Taking Entered as Reported by: RUDY MANN on 10/30/071133 Last Action: Discontinued Sertraline Hcl (Zoloft) 100 Mg Tablet, 50 MG PO DAILY, (Reported) Discontinued Reason: No Longer Taking Entered as Reported by: RUDY MANN on 10/30/071133 Last Action: Discontinued Simvastatin (Zocor) 10 Mg Tab, 10 MG PO EVERY OTHER DAY, (Reported) Discontinued Reason: No Longer Taking Entered as Reported by: LI ROBLEDO on 04/05/111509 Last Action: Discontinued Past Jjdkrhu-Sdtpve-Pnucau Hx Patient Social History Smoking Status: Never a Smoker Former Smoker, Quit: Mar 02, 2011 2nd Hand Smoke Exposure: No Recent Hopitalizations: No Alcohol Use?: No Have you traveled recently?: No Immunizations Up To Date Tetanus Booster (TDap): Unknown PED Vaccines UTD: No Date of Influenza Vaccine: Feb 10, 2011 Seasonal Allergies Seasonal Allergies: No Surgeries History of Surgeries: Yes Surgeries: Cardiac, Eye Surgery, Prostatectomy Respiratory History of Respiratory Disorde: No Cardiovascular History of Cardiac Disorders: Yes Cardiac Disorders: High Cholesterol, Hypertension Neurological History of Neurological Disord: No Reproductive System Hx Reproductive Disorders: No Sexually Transmitted Disease: No Genitourinary History of Genitourinary Disor: Yes (PROSTATE CANCER 2009) Genitourinary Disorders: Prostate Problems Gastrointestinal History of Gastrointestinal Di: No Musculoskeletal History of Musculoskeletal Dis: No Endocrine History of Endocrine Disorders: No Cancer History of Cancer: Yes Cancer: Prostate Psychosocial History of Psychiatric Problem: No Integumentary History of Skin or Integumenta: No Blood Transfusions History of Blood Disorders: No Family Medical History Significant Family History: Cancer (2 brothers w/ prostate cancer ) Review of Systems-General Constitutional: No chills, No diaphoresis EENTM: No blurred vision, No throat pain Respiratory: No cough, No short of breath Cardiovascular: No edema; other (cardiac cath by Mackenzie in 2007) Gastrointestinal: abdominal pain (RLQ), constipation, loss of appetite, nausea; No vomiting Genitourinary: dysuria (mild discomfort ); No frequency, No hematuria Musculoskeletal: No back pain, No joint swelling Skin: No lesions, No lumps Psychiatric/Neurological: Denies Anxiety, Denies Depressed Physical Exam-General Problems Physical Exam Vital Signs Vital Signs - First Documented 08/01/22 22:51 Temp 36.8 Pulse 67 Resp 16 B/P (MAP) 132/70 (90) Pulse Ox 98 O2 Delivery Room Air Capillary Refill : Less Than 3 Seconds General Appearance: WD/WN, no apparent distress Eyes: Bilateral Eye PERRL, Bilateral Eye EOMI HEENT: PERRL/EOMI, other (moist mucus membranes ) Neck: non-tender; No lymphadenopathy (R), No lymphadenopathy (L) Respiratory: chest non-tender, lungs clear, normal breath sounds, no respirator y distress, no accessory muscle use Cardiovascular: regular rate, rhythm, no edema, no murmur Peripheral Pulses: 2+ Dorsalis Pedis (R), 2+ Left Dors-Pedis (L), 2+ Radial Pulses (R), 2+ Radial Pulses (L) Gastrointestinal: soft, no organomegaly, no pulsatile mass, abnormal bowel sounds (hypoactive BS); No distended; tenderness (RLQ ) Back: no CVA tenderness; No vertebral tenderness Extremities: non-tender, no pedal edema, no calf tenderness, normal capillary refill Neurologic/Psychiatric: alert, normal mood/affect, oriented x 3 Skin: normal color, warm/dry Lymphatic: other (no axillary, cervial, or inguinal LAD ) Data Review Labs Laboratory Tests 08/01/22 23:03: White Blood Count 12.8H, Red Blood Count 4.09L, Hemoglobin 13.7, Hematocrit 37L, Mean Corpuscular Volume 91, Mean Corpuscular Hemoglobin 34, Mean Corpuscular Hemoglobin Concent 37H, Red Cell Distribution Width 11.8, Platelet Count 172, Mean Platelet Volume 10.3, Immature Granulocyte % (Auto) 0, Neutrophils (%) (Aut o) 85H, Lymphocytes (%) (Auto) 8L, Monocytes (%) (Auto) 7, Eosinophils (%) (Auto) 0, Basophils (%) (Auto) 0, Neutrophils # (Auto) 10.9H, Lymphocytes # (Auto) 1.0, Monocytes # (Auto) 0.9, Eosinophils # (Auto) 0.0, Basophils # (Auto) 0.0, Immature Granulocyte # (Auto) 0.1, Neutrophils % (Manual) 86, Lymphocytes % (Manual) 5, Monocytes % (Manual) 9, Blood Morphology Comment NORMAL, Erythrocyte Sedimentation Rate 13, Sodium Level 126L, Potassium Level 4.4, Chloride Level 93L, Carbon Dioxide Level 23, Anion Gap 10, Blood Urea Nitrogen 16, Creatinine 0.91, Estimat Glomerular Filtration Rate 88, BUN/Creatinine Ratio 18, Glucose Level 139H, Calcium Level 8.8, Corrected Calcium 8.8, Magnesium Level 2.1, Total Bilirubin 0.8, Aspartate Amino Transf (AST/SGOT) 28, Alanine Aminotransferase (ALT/SGPT) 17, Alkaline Phosphatase 38L, C-Reactive Protein High Sensitivity 10.52H, Total Protein 6.8, Albumin 4.0, Amylase Level 63, Lipase 65 08/01/22 23:13: Urine Color YELLOW, Urine Clarity CLEAR, Urine pH 7.0, Urine Specific Arverne <=1.005, Urine Protein NEGATIVE, Urine Glucose (UA) NEGATIVE, Urine Ketones NEGATIVE, Urine Nitrite NEGATIVE, Urine Bilirubin NEGATIVE, Urine Urobilinogen 0.2, Urine Leukocyte Esterase NEGATIVE, Urine RBC (Auto) NEGATIVE, Urine RBC NONE, Urine WBC NONE, Urine Crystals NONE, Urine Bacteria NEGATIVE, Urine Casts NONE, Urine Mucus NEGATIVE, Urine Culture Indicated NO 08/02/22 05:08: White Blood Count 8.9, Red Blood Count 3.79L, Hemoglobin 12.6L, Hematocrit 35L, Mean Corpuscular Volume 91, Mean Corpuscular Hemoglobin 33, Mean Corpuscular Hemoglobin Concent 36, Red Cell Distribution Width 11.8, Platelet Count 137, Mean Platelet Volume 9.8, Immature Granulocyte % (Auto) 0, Neutrophils (%) (Auto) 80H, Lymphocytes (%) (Auto) 11L, Monocytes (%) (Auto) 9, Eosinophils (%) (Auto) 0, Basophils (%) (Auto) 0, Neutrophils # (Auto) 7.1, Lymphocytes # (Auto) 0.9L, Monocytes # (Auto) 0.8, Eosinophils # (Auto) 0.0, Basophils # (Auto) 0.0, Immature Granulocyte # (Auto) 0.0, Sodium Level 133L, Potassium Level 4.3, Chloride Level 102, Carbon Dioxide Level 24, Anion Gap 7, Blood Urea Nitrogen 15, Creatinine 0.78, Estimat Glomerular Filtration Rate 94, BUN/Creatinine Ratio 19, Glucose Level 117H, Calcium Level 8.2L Assessment/Plan Assessment/Plan Assessment/Plan Abdominal pain secondary to Acute appendicits nausea-improving constipation HTN HLD CAD Leukocytosis- resolved NPO Laproscopic appendectomy today by Dr. Evans, discussed risks and benefits of procedure and pt wishes to continue, obtain consent Continue IV Abx therapy continue proper pain control start home HTN regimen continue IVF Halliefran CHAIM MURGUIA DO 08/02/22 1044: History of Present Illness History of Present Illness Time Seen by Provider: 10:15 History of Present Illness Surgery asked to consult regarding appendicitis. HPI per ED: PT ARRIVES VIA POV FROM HOME, PT STATES HE BEGAN HAVING ABDOMINAL PAIN ON MONDAY NIGHT 07/30/22, STATES PAIN STARTED IN PERIUMBILICAL AREA, AND THEN IT MOVED TO HIS RIGHT LOWER ABDOMEN, PAIN IS CONSTANT, AND IS MUCH WORSE WITH ANY MOVEMENT OR WALKING. PAIN IS A LITTLE LESS IF HE LAYS STILL, HE HAD FEVER OF 101 ON MONDAY, HE HAS HAD NAUSEA AND VOMITED X 1 ON MONDAY MORNING. HE IS STILL URINATING NORMALLY. HE HAS SLIGHT PAIN IN HIS ABDOMEN ON URINATING. HE HAS NOT HAD BM SINCE MONDAY, HE DID NOT EAT ANY FOOD ON MONDAY. TODAY HE ATE A LITTLE PASTA WITH AVOCADO SAUCE ABOUT 3 HOURS AGO. HE HAS BEEN DRINKING FLUIDS When I saw him this morning he was comfortable and kept asking me how soon we could do the surgery. Pain is well controlled. Allergies and Home Medications Allergies Coded Allergies: Penicillins (Verified Allergy, Unknown, 10/30/07) Patient Home Medication List Home Medication List Reviewed: Yes Amlodipine Besylate (Amlodipine Besylate) 5 Mg Tablet, 5 MG PO HS, (Reported) Entered as Reported by: LIGIA LOPEZ on 08/02/22 1034 Last Action: New Order Hydralazine HCl (Hydralazine HCl) 25 Mg Tablet, 25 MG PO BID, (Reported) Entered as Reported by: LIGIA LOPEZ on 08/02/22 103 Last Action: New Order Losartan Potassium (Losartan Potassium) 100 Mg Tablet, 100 MG PO HS, (Reported) Entered as Reported by: LIGIA LOPEZ on 08/02/22 103 Last Action: New Order Sertraline HCl (Sertraline HCl) 100 Mg Tablet, 50 MG PO DAILY, (Reported) Entered as Reported by: LIGIA LOPEZ on 08/02/22 103 Last Action: New Order Discontinued Medications Alendronate Sodium (Fosamax) 70 Mg Tablet, 70 MG PO WEEK, (Reported) Discontinued Reason: Duplicate Order Entered as Reported by: JOSE CARLOS PATTON on 02/17/16 1240 Last Action: Discontinued Aspirin (Aspirin 81 Mg Chew Tab) 81 Mg Chew, 81 MG PO DAILY, (Reported) Discontinued Reason: No Longer Taking Entered as Reported by: LI ROBLEDO on 04/05/111509 Last Action: Discontinued Calcium Carbonate/Vitamin D3 (Calcium 600 + D Caplet) 1 Each Tablet, 2 EACH PO DAILY, (Reported) Discontinued Reason: No Longer Taking Entered as Reported by: LI ROBLEDO on 04/05/111511 Last Action: Discontinued Cholecalciferol (Vitamin D3) (Vitamin D3) 2,000 Unit Tablet, 2,000 UNIT PO DAILY, (Reported) Discontinued Reason: No Longer Taking Entered as Reported by: LI ROBLEDO on 04/05/111511 Last Action: Discontinued Losartan Potassium (Losartan Potassium) 50 Mg Tablet, 50 MG PO BID, (Reported) Discontinued Reason: No Longer Taking Entered as Reported by: ANAHI LEY on 03/02/21 0930 Last Action: Discontinued Metoprolol Succinate (Toprol Xl 25MG) 25 Mg Tab.sr.24h, 12.5 MG PO DAILY, (Reported) Discontinued Reason: No Longer Taking Entered as Reported by: RUDY MANN on 10/30/071133 Last Action: Discontinued Sertraline Hcl (Zoloft) 100 Mg Tablet, 50 MG PO DAILY, (Reported) Discontinued Reason: No Longer Taking Entered as Reported by: RUDY MANN on 10/30/071133 Last Action: Discontinued Simvastatin (Zocor) 10 Mg Tab, 10 MG PO EVERY OTHER DAY, (Reported) Discontinued Reason: No Longer Taking Entered as Reported by: LI ROBLEDO on 04/05/11 1510 Last Action: Discontinued Past Eaqgnql-Xcbvbw-Xdgxgq Hx Patient Social History Smoking Status: Former Smoker Surgeries History of Surgeries: Yes Surgeries: Cardiac, Eye Surgery, Prostatectomy Respiratory History of Respiratory Disorde: No Cardiovascular History of Cardiac Disorders: Yes Cardiac Disorders: High Cholesterol, Hypertension Neurological History of Neurological Disord: No Reproductive System Hx Reproductive Disorders: No Genitourinary History of Genitourinary Disor: Yes Genitourinary Disorders: Prostate Problems Gastrointestinal History of Gastrointestinal Di: No Musculoskeletal History of Musculoskeletal Dis: No Endocrine History of Endocrine Disorders: No HEENT History of HEENT Disorders: No Loss of Vision: Denies Hearing Impairment: Denies Cancer History of Cancer: Yes Cancer: Prostate Psychosocial History of Psychiatric Problem: No Integumentary History of Skin or Integumenta: No Family Medical History Significant Family History: Cancer (2 brothers w/ prostate cancer ) Family Medial History: FH: gastric cancer Review of Systems-General Constitutional: No chills, No diaphoresis; malaise EENTM: No blurred vision, No mouth swelling, No throat pain Respiratory: No cough, No short of breath Cardiovascular: No edema; Hx of Intervention, other (cardiac cath by Mackenzie in 2007) Gastrointestinal: abdominal pain (RLQ), constipation, loss of appetite, nausea; No vomiting Genitourinary: dysuria (mild discomfort ); No frequency, No hematuria Musculoskeletal: No back pain, No joint swelling Skin: No lesions, No lumps Psychiatric/Neurological: Denies Anxiety, Denies Depressed Physical Exam-General Problems Physical Exam General Appearance: WD/WN, no apparent distress Eyes: Bilateral Eye PERRL, Bilateral Eye EOMI HEENT: pharynx normal; No scleral icterus (R), No scleral icterus (L); other ( moist mucus membranes ) Neck: non-tender, supple Respiratory: chest non-tender, lungs clear, normal breath sounds, no respiratory distress, no accessory muscle use Cardiovascular: regular rate, rhythm, no murmur Gastrointestinal: soft, no organomegaly, no pulsatile mass, abnormal bowel sounds (hypoactive BS); No distended; tenderness (RLQ ) Back: no CVA tenderness, no vertebral tenderness Extremities: non-tender, no pedal edema, no calf tenderness Neurologic/Psychiatric: last sawyer II-XII nml as tested, alert, normal mood/affect, oriented x 3 Skin: normal color, warm/dry Lymphatic: no adenopathy (no axillary, cervial, or inguinal LAD ), other Data Review Radiology Date of Exam:08/01/22 CT ABD/PELV W (APPENDICITIS) EXAMINATION: CT abdomen and pelvis with intravenous contrast. TECHNIQUE: Multiple contiguous axial images were obtained through the abdomen and pelvis after the uneventful administration of intravenous contrast. All CT scans use one or more of the following dose optimizing techniques: automated exposure control, MA and/or KvP adjustment based on patient size and exam type or iterative reconstruction. HISTORY: Right lower quadrant pain. COMPARISON: None available. FINDINGS: The heart is unremarkable. Minimal dependent atelectasis is seen. Scattered hypoattenuating foci are seen in the liver, most suggestive of benign cysts. No enhancing hepatic lesions. The portal vein is patent. The gallbladder is decompressed. Simple cortical cyst is seen in the inferior pole the left kidney. No solid renal mass. No evidence of hydronephrosis. The urinary bladder is unremarkable. The spleen, pancreas, and adrenal glands have a normal appearance. There is no pathologically enlarged mesenteric or retroperitoneal adenopathy. The bowel loops are nondilated. The appendix is dilated measuring 1.8 cm in diameter. There is periappendicular fat stranding. There is no free fluid or free air. No acute osseous abnormalities. There is no free air, loculated collection, or adenopathy in the pelvis. IMPRESSION: 1. Acute appendicitis. No evidence of rupture. Agree with overnight report. Dictated by: Dictated on workstation # [id number] Dict: 08/02/22 0657 Trans: 08/02/22 0725 [facility] [id number] Interpreted by: JUDY VICTORIA DO Electronically signed by: JUDY VICTORIA DO 08/02/22 0725 Assessment/Plan Assessment/Plan Assessment/Plan Acute appendicits - with nausea and some constipation HTN HLD CAD Leukocytosis- resolved NPO, IV Abx, IV fluids, pain control and antiemetics as needed, resume home HTN regimen I reviewed the CT myself and saw the very large appendix with stranding and signs of inflammation. I also discussed case with the ER provider. I talked to pt today about Laproscopic appendectomy with possible open and all other adria cated procedures. We discussed risks and complications not limited to pain, bleeding, infection, scar, damage to bowel and need for further procedure. All questions answered to his satisfaction and he wishes to proceed with surgery; will obtain consent. Supervisory-Addendum Brief Verification & Attestation Participated in pt care: history, MDM, physical Personally performed: exam, history, MDM, supervision of care Care discussed with: Medical Student Procedures: n/a Verification and Attestation of Medical Student E/M Service A medical student performed and documented this service. I then reviewed and verified all information documented by the medical student and made modifications to such information, when appropriate. I personally performed a p hysical exam, medical decision making and then discussed any differences between the notes and made revisions as necessary to create one note. Chaim Gillespie , 08/02/22 , 10:44 VIRI ODELL Aug 02, 2022 08:09 CHAIM GILLESPIE DO Aug 02, 2022 10:44
[2022-08-02] MEDS ORDERED: AMLO-250 PO (10:34)
[2022-08-02] MEDS ORDERED: SERT-414 PO (10:34)
[2022-08-02] MEDS ORDERED: HYDR-3923 PO (10:34)
[2022-08-02] MEDS ORDERED: LOSA100T57 PO (10:34)
[2022-08-02] MEDS ORDERED: MAGN400T39 PO (10:38)
[2022-08-02] MEDS ORDERED: CALC600T91 PO (10:38)
[2022-08-02] MEDS ORDERED: SIMV20TA26 PO (10:38)
[2022-08-02] MEDS ORDERED: CHOL200074 PO (10:38)
[2022-08-02] MEDS ORDERED: BUP/EPI 0.5% 1:200,000 (SENSORCAINE) 30 ML VIAL ONE (11:00)
[2022-08-02] MEDS ORDERED: ROCURONIUM 50 MG/5 ML (ZEMURON) VIAL IV ONE (11:10)
[2022-08-02] MEDS ORDERED: proPOfol 200 MG/20 ML (DIPRIVAN) VIAL IV ONE (11:10)
[2022-08-02] MEDS ORDERED: ONDANSETRON 4 MG/2 ML (SDV) Z0FRAN ONE (11:10)
[2022-08-02] MEDS ORDERED: LIDOCAINE PF 2% 5 ML (XYLOCAINE) VIAL ONE (11:10)
[2022-08-02] MEDS ORDERED: GLYCOPYRROLATE 0.2 MG/ML (ROBINUL) 2 ML VIAL ONE (11:10)
[2022-08-02] MEDS ORDERED: fentaNYL INJ 100 MCG/2 ML AMP ONE (11:10)
[2022-08-02] MEDS ORDERED: NEOSTIGMINE (BLOXIVERZ ) 1 MG/1ML 10 ML VIAL ONE (11:11)
[2022-08-02] MEDS ORDERED: LACTATED RINGERS 1,000 ML IV PRN (12:00)
[2022-08-02] MEDS ORDERED: BUP/EPI 0.5% 1:200,000 (SENSORCAINE) 30 ML VIAL INJ ONE (12:26)
[2022-08-02] MEDS ORDERED: SEVOFLURANE (ULTANE) 15 ML INHAL SOLN ONE (12:51)
--- NOTE | 2022-08-02 12:52 | Progress Note-Post Operative ---
Post-Operative Progess Note Surgeon (s)/Diabetes Educator (s) Surgeon CHAIM GILLESPIE DO Diabetes Educator: ALICIA Grimm Pre-Operative Diagnosis Acute Appy Post-Operative Diagnosis same Procedure & Operative Findings Date of Procedure 08/02/22 Procedure Performed/Findings PROCEDURE: Laparoscopic appendectomy. COMPLICATIONS: None. INDICATIONS: The patient is a 72 year old male who has been having right lower quadrant abdominal pain. Patient's exam consistent with appendicitis. I discussed risk and benefits of laparoscopic appendectomy and all indicated procedures with the possibility being a normal appendix. The patient understands the risks and benefits and wishes to proceed. Consent was signed on the chart. DESCRIPTION OF PROCEDURE: The patient was taken to the operating suite, prepped and draped in a sterile fashion. Timeout was performed. Local anesthetic was infiltrated just above the umbilicus and 11-blade scalpel was used to make a skin incision. Cautery was used to dissect down to the fascia and scored. Kochers were used to grasp and elevate it and the abdomen was then entered. An 0 Vicryl was placed in a spchrs-ah-[id number] fashion for closure at the end of the case. The balloon trocar was inserted into the abdomen and pneumoperitoneum was achieved. Under direct visualization of the laparoscope, a 5 mm trocar was placed in the suprapubic region and a 5 mm trocar was placed in the left lower quadrant. Appendix was located, back behind the cecum; it was inflamed and much larger than normal. The base of the appendix was dissected around. Once at the base an Endo-MARYJANE 2.5 stapler was then fired across the base of the appendix. The mesoappendix was then divided. It was then placed in an Endobag and removed through the 12 mm trocar site. The abdomen was then irrigated and suctioned. No other pathology noted; but p ossibly an indirect inguinal hernia on the right. The abdomen was then desufflated and the trocars were removed. The 0 Vicryl placed at the beginning of the case was then tied closing the 12 mm fascial defect. The skin was then closed using 4-0 Monocryl in a subcuticular fashion. The abdomen was then washed and dried and Skin Affix was placed over the incisions. The patient tolerated the procedure well without any complications and was taken to the recovery room in stable condition. Anesthesia Type GET Estimated Blood Loss Estimated blood loss (mL): scant Specimens/Packing Specimens Removed CHAIM Zhao DO Aug 02, 2022 12:52
[2022-08-02] MEDS ORDERED: ACHD5005 PO (12:53)
--- NOTE | 2022-08-02 12:54 | Discharge Inst-Surgical ---
Discharge Inst-Surgical Depart Medication/Instructions New, Converted or Re-Newed RX: Transmitted to Pharmacy Patient Instructions Follow up Appt: Make appointment for 1 week. [phone] Instructions: No lifting greater than 20 pounds. No strenuous activity. May shower in 24 hours, no tub bath or soaking. Use incentive spirometer at home as directed. No Smoking Skin/Wound Care: May remove bandages in am. You need to leave the Dermabond on incision it will fall off on it's own. Symptoms to Report: Appetite Changes, Extremity Discoloration, Numbness/Tingling, Swelling Increased, Bleeding Excessive, Eyesight Changes, Pain Increased, Urine Color Change, Constipation(Persistent), Fever over 101 degree F, Pain/Pressure in chest, Urinating Difficulty, Cough Up/Vomit Blood, Heart Beat Irreg/Pounding, Pain/Pressure in jaw, Cramps in feet or legs, Lightheadedness, Pain/Pressure in shoulder, Diarrhea(Persistent), Memory Changes Suddenly, Questions/Concerns, Weight gain consecutive days, Dizziness/Fainting, Nausea/Vomiting, Shortness of Breath, Weight gain over 2 pounds If questions or concerns contact your physician Or seek help at emergency department. Activity Activity as Tolerated: Yes Activity Instructions: Avoid Stress to Incision Diet Discharge Diet: No Restrictions Diet After 24 Hours: Clear Liquid if Nauseous If Any Problems/Questions/Issu: Contact Your Physician, Go to Emergency Room Skin/Wound Care Infection Signs and Symptoms: Increased Redness, Foul Odor of Wound, Increased Drainage, Skin Itchy or Has a Rash, Increased Swelling, Temperature Above 101 F Wound Care Comment: heating pad to shoulder or neck tonight for pain Bathing Instructions: Shower Stitches/[place]/Dermabond Dis: Nolbertoond CHAIM GILLESPIE DO Aug 02, 2022 12:54
[2022-08-02] MEDS ORDERED: morphine INJ 10 MG/ML 1ML (SYR OR VIAL) IVP ONE (13:15)
[2022-08-02] MEDS ORDERED: ONDANSETRON 4 MG/2 ML (SDV) Z0FRAN IVP PRN (13:15)
--- NOTE | 2022-08-02 13:28 | Anesthesia-General Post-Op ---
General Patient Condition Mental Status/LOC: Same as Preop Cardiovascular: Satisfactory Nausea/Vomiting: Absent Respiratory: Satisfactory Pain: Controlled Complications: Absent Post Op Complications Complications None Follow Up Care/Instructions Patient Instructions None needed. Anesthesia/Patient Condition Patient Condition Patient is doing well in PACU with no complaints, stable vital signs, no apparent adverse anesthesia problems. No complications reported per nursing. LILI BEAL DO Aug 02, 2022 13:28
== END 2022-08-02 20:05 | disposition home or self-care (01) | DRG 342 ==
LOC: EDUNIT# 22:38 → ER 22:39 → 4TH 08-02 01:14
PROVIDERS: ADMIT Surgery; ATTEND Surgery
PROC: 0DTJ4ZZ Resection of Appendix, Percutaneous Endoscopic Approach (ICD-10-PCS; principal; 2022-08-02 11:59)
DX: K35.80 Unspecified acute appendicitis (principal); E87.1 Hypo-osmolality and hyponatremia; K40.90 Unilateral inguinal hernia, without obstruction or gangrene, not specified as recurrent; I10 Essential (primary) hypertension; E78.00 Pure hypercholesterolemia, unspecified; I25.10 Atherosclerotic heart disease of native coronary artery without angina pectoris; K59.00 Constipation, unspecified; Z85.46 Personal history of malignant neoplasm of prostate; Z79.899 Other long term (current) drug therapy; Z88.0 Allergy status to penicillin; Z87.891 Personal history of nicotine dependence
CPT/HCPCS: 36415; 74177; 80048; 80053; 81000; 82150; 83690; 83735; 85007; 85025; 85027; 85652; 86141; 87081; 94664

== ENCOUNTER → 2022-10-18 | Outpatient (CLI) | payer BC, MEDICARE ==
[~2022-10-18] VITALS: Ht 160 cm; Wt 52.1 kg
[~2022-10-18] MED LIST changes: +ACHD5005 PO; +AMLO-250 PO; +CALC600T91 PO; +CHOL200074 PO; +DENOSUMAB 60 MG/1 ML (PROLIA) SQ ONE; +HYDR-3923 PO; +LOSA100T58 PO; +MAGN400T39 PO; +SERT-414 PO; +SIMV20TA26 PO
[2022-10-18 12:54] VITALS: BP 115/70
== END ==
LOC: SDC 12:38
PROVIDERS: ATTEND Nurse Practitioner Family
DX: M81.0 Age-related osteoporosis without current pathological fracture (principal)
CPT/HCPCS: 96372

== ENCOUNTER → 2023-04-10 | Outpatient (CLI) | payer BC, MEDICARE ==
[~2023-04-10] VITALS: Ht 157 cm; Wt 52.1 kg
[2023-04-10 13:50] VITALS: BP 120/70
== END ==
LOC: SDC 13:18
PROVIDERS: ATTEND Physician Assistant
DX: M81.0 Age-related osteoporosis without current pathological fracture (principal)
CPT/HCPCS: 96372